=== PATIENT | male | born 1950 | race Caucasian/White ===

== ENCOUNTER 2019-02-23 12:43 | Inpatient (IN) | payer OTHER ==
[~2019-02-23] VITALS: Ht 180.3 cm; Wt 90.7 kg
[2019-02-23] MEDS ORDERED: METFORMIN HCL1000 M1 PO (13:39)
[2019-02-23] MEDS ORDERED: PENTOXIFYLLINE400 MG PO (13:40)
[2019-02-23] MEDS ORDERED: GLIMEPIRIDE4 MG PO (13:40)
[2019-02-23] MEDS ORDERED: NEURONTIN800 MG PO (13:40)
[2019-02-23] MEDS ORDERED: ADULT LOW DOSE81 M1 PO (13:41)
[2019-02-23] MEDS ORDERED: ATORVASTATIN CA20 MG PO (13:41)
== END 2019-03-03 20:23 | DRG 513 ==
LOC: ER 12:43 → SEC-K 02-24 11:51 → MEDI 02-24 11:51
PROVIDERS: Specialist; ADMIT Internal Medicine
PROC: BQ3LZZZ Magnetic Resonance Imaging (MRI) of Right Foot (ICD-10-PCS; 2019-02-24)
PROC: 0X6L0Z0 Detachment at Right Thumb, Complete, Open Approach (ICD-10-PCS; principal; 2019-02-26 16:00)
PROC: B54BZZZ Ultrasonography of Right Lower Extremity Veins (ICD-10-PCS; 2019-03-01)
DX: M86.171 Other acute osteomyelitis, right ankle and foot (principal); E11.52 Type 2 diabetes mellitus with diabetic peripheral angiopathy with gangrene; I96 Gangrene, not elsewhere classified; E11.621 Type 2 diabetes mellitus with foot ulcer; L97.513 Non-pressure chronic ulcer of other part of right foot with necrosis of muscle; Z79.4 Long term (current) use of insulin; E11.42 Type 2 diabetes mellitus with diabetic polyneuropathy; Z72.0 Tobacco use; E11.65 Type 2 diabetes mellitus with hyperglycemia; B95.61 Methicillin susceptible Staphylococcus aureus infection as the cause of diseases classified elsewhere; B96.4 Proteus (mirabilis) (morganii) as the cause of diseases classified elsewhere; I10 Essential (primary) hypertension; I87.2 Venous insufficiency (chronic) (peripheral)
CPT/HCPCS: 73221

== ENCOUNTER 2021-01-08 19:38 | Emergency (ER) | payer OTHER ==
[~2021-01-08] VITALS: Ht 180.3 cm; Wt 97.5 kg
[~2021-01-08 19:38] MED LIST: ADULT LOW DOSE81 M1 PO; ATORVASTATIN CA20 MG PO; GLIMEPIRIDE4 MG PO; METFORMIN HCL1000 M1 PO; NEURONTIN800 MG PO; PENTOXIFYLLINE400 MG PO
[2021-01-08] MEDS ORDERED: JANUMET 50-1,01 EACH PO (19:55)
[2021-01-08] MEDS ORDERED: GLIMEPIRIDE4 M1 PO (19:56)
== END 2021-01-08 21:04 | disposition home or self-care (01) ==
LOC: ER 19:38
DX: E11.628 Type 2 diabetes mellitus with other skin complications (principal); I96 Gangrene, not elsewhere classified; E11.65 Type 2 diabetes mellitus with hyperglycemia; Z79.84 Long term (current) use of oral hypoglycemic drugs

== ENCOUNTER 2022-07-21 07:18 | Inpatient (IN) | payer OTHER ==
[~2022-07-21] VITALS: Ht 165.1 cm; Wt 90.7 kg
[~2022-07-21 07:18] MED LIST changes: +GLIMEPIRIDE4 M1 PO; +JANUMET 50-1,01 EACH PO
[2022-07-21] MEDS ORDERED: GLIPIZIDE XL10 MG PO (08:05)
[2022-07-21] MEDS ORDERED: PLAVIX75 MG PO (08:05)
[2022-07-21] MEDS ORDERED: NORVASC5 MG PO (08:06)
[2022-07-21] MEDS ORDERED: ZESTRIL5 MG PO (08:07)
[2022-07-21] MEDS ORDERED: HORIZANT300 MG (08:07)
[2022-07-21] MEDS ORDERED: LANTUS SOL100 UNIT/1 SQ (08:08)
--- NOTE | 2022-07-21 08:10 | NUR ---
SE RECIBE MASCULINO DE 71 ANOS ALERTA Y ORIENTADO X3. REFIERE DOLOR EN PLANTA DE PIE CHELSEY. SE OBSERVA AREA CALLOSA. HX DE AMPUTACION EN DEDOS DE LOS PIES POR DIABETES. SE MIDEN S/V Y SE UBICA EN JAY DE ESPERA PENDIENTE A EVALUACION MEDICA.
--- NOTE | 2022-07-21 10:32 | NUR ---
PACIENTE ALERTA Y ORIENTADO X3. EVALUADA POR AL DRA. GIBSON. SE EDUCA PACIENTE SOBRE TRTAMIENTO MEDICO Y EL MISMO REFIERE ENTENDER. SE TANMAY MUESTRAS DE NATHAN Y SE ENVIAN A LABORATORIO. APCIENTE PENDIENTE A PLACA.
--- NOTE | 2022-07-21 15:24 | NUR ---
SE TANMAY CULTIVOS DE NATHAN SIGIENDO MEDIDAS ASEPTICAS
== END 2022-07-24 21:36 | disposition home or self-care (01) | DRG 638 ==
LOC: ER 07:18 → MEDI 19:45
PROVIDERS: ADMIT Internal Medicine; ATTEND Internal Medicine
PROC: BQ3MZZZ Magnetic Resonance Imaging (MRI) of Left Foot (ICD-10-PCS; principal; 2022-07-23)
DX: E11.621 Type 2 diabetes mellitus with foot ulcer (principal); L97.528 Non-pressure chronic ulcer of other part of left foot with other specified severity; E11.628 Type 2 diabetes mellitus with other skin complications; E11.65 Type 2 diabetes mellitus with hyperglycemia; L03.032 Cellulitis of left toe; E11.51 Type 2 diabetes mellitus with diabetic peripheral angiopathy without gangrene; M79.675 Pain in left toe(s); I10 Essential (primary) hypertension; B95.1 Streptococcus, group B, as the cause of diseases classified elsewhere; Z79.4 Long term (current) use of insulin; Z79.84 Long term (current) use of oral hypoglycemic drugs; Z89.412 Acquired absence of left great toe
CPT/HCPCS: 73725

== ENCOUNTER 2022-11-23 08:47 | Emergency (ER) | payer OTHER ==
[~2022-11-23] VITALS: Ht 180.3 cm; Wt 97.5 kg
[~2022-11-23 08:47] MED LIST changes: +GLIPIZIDE XL10 MG PO; +HORIZANT300 MG; +LANTUS SOL100 UNIT/1 SQ; +NORVASC5 MG PO; +PLAVIX75 MG PO; +ZESTRIL5 MG PO
== END 2022-11-23 10:46 | disposition home or self-care (01) ==
LOC: ER 08:47
DX: H57.12 Ocular pain, left eye (principal); E11.9 Type 2 diabetes mellitus without complications; Z79.84 Long term (current) use of oral hypoglycemic drugs; I10 Essential (primary) hypertension

== ENCOUNTER 2023-10-13 10:02 | Inpatient (IN) | payer OTHER ==
[~2023-10-13] VITALS: Ht 167.6 cm; Wt 100.7 kg
[2023-10-13] MEDS ORDERED: ASPIRIN 325 MG TABLET.EC PO STA (12:15)
[2023-10-13] MEDS ORDERED: FUROsemide 40 MG/4 ML VIAL IV STA (12:16)
[2023-10-13] MEDS ORDERED: FAMOTIDINE/PF 20 MG in 0.9 % SODIUM CHLORIDE 8 ML IV PUSH STA (12:17)
[2023-10-13 13:35] LABS: HEMATOCRIT 43.6 % (39.0-48.0); HEMOGLOBIN 15.4 g/dL (13-16.00); MEAN CORPUSCULAR HEMOGLOBIN 28.6 pg (27.00-32.0); MEAN CORPUSCULAR HGB CONC 35.4 g/dl (32.0-36.0); PLATELET COUNT 176 K/uL (150-450); RED BLOOD COUNT 5.38 M/uL (4.00-6.00)
[2023-10-13 14:13] LABS: ALBUMIN 3.5 gm/dL (3.4-5.0); BILIRUBIN TOTAL 0.7 mg/dL (0.3-1.2); CREATININE SERUM 0.67 mg/dL (0.70-1.30); GFR 116.93; GLOBULINA 3.8 G/DL (2.4-3.5); INR 1.02; PARTIAL THROMBOPLASTIN TIME 28.9 SECONDS (22.0-34.0); POTASSIUM 3.97 mEq/L (3.5-5.1); PROTHROMBIN TIME 10.7 SECONDS (9.0-11.5); TOTAL PROTEIN 7.3 gm/dL (6.4-8.2)
[2023-10-13 14:22] LABS: ABG PH 7.444 (7.35-7.45); ABG PO2 60.1 mmHg (80-100); ABG pCO2 40.7 mmHg (35-45); BASE EXCESS 2.9 mmol/l; BICARBONATE 27.3 mmol/l (23-25); Tco2 28.5 mmol/l; allen test SATISFACTORY; o2 21 %; puncture site RADIAL RIGHT
[2023-10-13] MEDS ORDERED: IPRATROPIUM BROMIDE 0.5 MG/2.5 ML AMPUL.NEB IH SCH (18:21)
[2023-10-13] MEDS ORDERED: GUAIFENESIN 600 MG TABLET.SA PO SCH (18:27)
[2023-10-13] MEDS ORDERED: AZITHROMYCIN 500 MG in DEXTROSE 5 % IN WATER 250 ML IV SCH (18:28)
[2023-10-13] MEDS ORDERED: CEFTRIAXONE SODIUM 2,000 MG in 0.9 % SODIUM CHLORIDE 100 ML IV SCH (18:28)
[2023-10-13] MEDS ORDERED: DEXTROSE 50 % IN WATER 0.5 G/ML DISP.SYRIN IV PRN (18:30)
[2023-10-13] MEDS ORDERED: INSULIN LISPRO 1,000 UNIT/10 ML UNITS SUBCUTANEO PRN (18:30)
[2023-10-13] MEDS ORDERED: METHYLPREDNISOLONE SOD SUCC 125 MG VIAL IV ONE (18:30)
[2023-10-13] MEDS ORDERED: ACETAMINOPHEN 500 MG GEL..CAP PO PRN (18:45)
[2023-10-13 19:53] LABS: URINE APPEARANCE Clear; URINE BILIRRUBIN Negative (NEGATIVE); URINE BLOOD Negative; URINE COLOR Yellow; URINE LEUKOCYTE Negative; URINE NITRATE Negative; URINE UROBILINOGEN 0.2 E.U./dl
[2023-10-13 19:56] LABS: INR 1.04; PROTHROMBIN TIME 10.9 SECONDS (9.0-11.5)
[2023-10-13 19:57] LABS: URINE BACTERIA 89.3 uL (0.0-1933); URINE EPITHELIAL CELLS 3.5 uL (0.0-38.8); URINE WBC 1.8 uL (0.0-23.2)
[2023-10-13 19:59] LABS: URINE GLUCOSE 250 MG/DL (NEGATIVE); URINE PROTEIN 100 (NEGATIVE); URINE RBC 1.5 uL (0.0-20.8)
[2023-10-14] MEDS ORDERED: CLOPIDOGREL BISULFATE 75 MG TABLET PO SCH (09:00)
[2023-10-14] MEDS ORDERED: FUROsemide 20 MG/2 ML VIAL IV SCH (09:00)
[2023-10-14] MEDS ORDERED: FAMOTIDINE/PF 20 MG in 0.9 % SODIUM CHLORIDE 8 ML IV PUSH SCH (09:00)
[2023-10-14] MEDS ORDERED: ATORVASTATIN CALCIUM 20 MG TABLET PO SCH (09:00)
[2023-10-14] MEDS ORDERED: PENTOXIFYLLINE 400 MG TABLET.SA PO SCH (09:00)
[2023-10-14] MEDS ORDERED: LISINOPRIL 5 MG TABLET PO SCH (09:00)
[2023-10-14] MEDS ORDERED: METHYLPREDNISOLONE SOD SUCC 40 MG VIAL IV SCH (18:42)
[2023-10-14] MEDS ORDERED: LEVALBUTEROL HCL 1.25 MG/3 ML SOLUTION IH SCH (21:00)
[2023-10-14] MEDS ORDERED: IPRATROPIUM BROMIDE 0.5 MG/2.5 ML AMPUL.NEB IH SCH (21:00)
[2023-10-14] MEDS ORDERED: AMLODIPINE BESYLATE 5 MG TABLET PO SCH (21:15)
[2023-10-15 07:01] LABS: HEMOGLOBIN 15.6 g/dL (13-16.00); MEAN CORPUSCULAR HEMOGLOBIN 28.4 pg (27.00-32.0); MEAN CORPUSCULAR HGB CONC 35.4 g/dl (32.0-36.0); PLATELET COUNT 169 K/uL (150-450); RED BLOOD COUNT 5.49 M/uL (4.00-6.00); RED CELL DISTRIBUTION WIDTH 14.3 % (11.5-14.5)
[2023-10-15 07:24] LABS: ALBUMIN 3.6 gm/dL (3.4-5.0); BILIRUBIN TOTAL 0.39 mg/dL (0.3-1.2); CALCIUM 9.4 mg/dL (8.5-10.1); CREATININE SERUM 0.87 mg/dL (0.70-1.30); GFR 86.5; GLOBULINA 3.5 G/DL (2.4-3.5); MAGNESIUM 2.3 mg/dL (1.8-2.4); PHOSPHOROUS 4.2 mg/dL (2.5-4.9); POTASSIUM 4.68 mEq/L (3.5-5.1); TOTAL PROTEIN 7.1 gm/dL (6.4-8.2)
[2023-10-15 07:29] LABS: C-REACTIVE PROTEIN 1.53 MG/DL (0.00-0.29)
[2023-10-15 08:34] LABS: MYCOPLASMA PNEUMONIAE IGM NON REACTIVE (NO REACTIVE)
[2023-10-15] MEDS ORDERED: LISINOPRIL 10 MG TABLET PO SCH (10:01)
[2023-10-15] MEDS ORDERED: INSULIN GLARGINE,HUM.REC.ANLOG 1,000 UNITS/10 ML UNITS SUBCUTANEO SCH (17:00)
[2023-10-15] MEDS ORDERED: AMLODIPINE BESYLATE 10 MG TABLET PO SCH (17:00)
[2023-10-16] MEDS ORDERED: NYSTATIN 15 GM,ZINC OXIDE 30 GM,SILVER SULFADIAZINE 50 GM TOP PRN (15:00)
[2023-10-16] MEDS ORDERED: LACTULOSE 20 G/30 ML BLIST.PACK PO STA (18:20)
[2023-10-16] MEDS ORDERED: MAGNESIUM HYDROXIDE 30 ML BLIST.PACK PO STA (18:20)
[2023-10-17] MEDS ORDERED: FUROsemide 20 MG TABLET PO SCH (09:00)
[2023-10-17] MEDS ORDERED: INSULIN GLARGINE,HUM.REC.ANLOG 1,000 UNITS/10 ML UNITS SUBCUTANEO SCH (17:00)
[2023-10-17] MEDS ORDERED: DEXTROSE 50 % IN WATER 0.5 G/ML DISP.SYRIN IV PRN (20:00)
[2023-10-17] MEDS ORDERED: INSULIN LISPRO 1,000 UNIT/10 ML UNITS SUBCUTANEO PRN (20:00)
[2023-10-18] MEDS ORDERED: LISINOPRIL 20 MG TABLET PO SCH (09:00)
[2023-10-18 23:07] LABS: ABG PH 7.426 (7.35-7.45); ABG PO2 70.1 mmHg (80-100); ABG pCO2 43.4 mmHg (35-45); SaO2 94.4 %
[2023-10-18 23:08] LABS: BICARBONATE 27.9 mmol/l (23-25); Tco2 29.2 mmol/l; allen test SATISFACTORY; o2 21 %; puncture site RADIAL RIGHT
== END 2023-10-20 14:00 | disposition home or self-care (01) | DRG 291 ==
LOC: ER 10:02 → MEDJ 18:55
PROVIDERS: General Practice; Internal Medicine Critical Care Medicine; Internal Medicine Infectious Disease; ADMIT Internal Medicine; ATTEND Internal Medicine
PROC: BW24ZZZ Computerized Tomography (CT Scan) of Chest and Abdomen (ICD-10-PCS; principal; 2023-10-13)
PROC: B24BZZZ Ultrasonography of Heart with Aorta (ICD-10-PCS; 2023-10-13)
PROC: 4A12X4Z Monitoring of Cardiac Electrical Activity, External Approach (ICD-10-PCS; 2023-10-19)
DX: I11.0 Hypertensive heart disease with heart failure (principal); I50.33 Acute on chronic diastolic (congestive) heart failure; J44.1 Chronic obstructive pulmonary disease with (acute) exacerbation; J20.9 Acute bronchitis, unspecified; E11.9 Type 2 diabetes mellitus without complications; Z79.4 Long term (current) use of insulin; Z20.822 Contact with and (suspected) exposure to COVID-19; R91.1 Solitary pulmonary nodule; I73.9 Peripheral vascular disease, unspecified

== ENCOUNTER 2024-06-03 05:50 | Day surgery (SDC) | payer OTHER ==
[2024-05-28 09:28] LABS: URINE BACTERIA 8.8 uL (0.0-1933); URINE EPITHELIAL CELLS 6.3 uL (0.0-38.8); URINE WBC 5.4 uL (0.0-23.2)
[2024-05-28 09:30] LABS: HEMOGLOBIN 15.5 g/dL (13-16.00); MEAN CELL VOLUME 78.7 fL (80.0-100.00); MEAN CORPUSCULAR HEMOGLOBIN 28.3 pg (27.00-32.0); MEAN CORPUSCULAR HGB CONC 35.9 g/dl (32.0-36.0); PLATELET COUNT 178 K/uL (150-450); RED BLOOD COUNT 5.46 M/uL (4.00-6.00); RED CELL DISTRIBUTION WIDTH 14.2 % (11.5-14.5)
[2024-05-28 09:32] LABS: PH,URINE 5.5; URINE BILIRRUBIN NEGATIVE (NEGATIVE); URINE BLOOD TRACE; URINE GLUCOSE NEGATIVE (NEGATIVE); URINE KETONE NEGATIVE (NEGATIVE); URINE LEUKOCYTE NEGATIVE; URINE NITRATE NEGATIVE; URINE UROBILINOGEN 0.2 E.U./dl
[2024-05-28 09:40] LABS: URINE APPEARANCE CLEAR; URINE COLOR COLORLESS; URINE PROTEIN 100 (NEGATIVE); URINE RBC 1.3 uL (0.0-20.8)
[2024-05-28 10:01] LABS: INR 1.06; PARTIAL THROMBOPLASTIN TIME 29.1 SECONDS (22.0-34.0); PROTHROMBIN TIME 11.5 SECONDS (9.0-11.5)
[2024-05-28 10:20] LABS: CALCIUM 9.4 mg/dL (8.5-10.1); CREATININE SERUM 0.62 mg/dL (0.70-1.30); GFR 127.88; POTASSIUM 4.26 mEq/L (3.5-5.1)
[2024-06-03] MEDS ORDERED: METRONIDAZOLE/SODIUM CHLORIDE 5 MG/ML ML IV SCH (09:00)
[2024-06-03] MEDS ORDERED: CEFTRIAXONE SODIUM 2,000 MG VIAL IV SCH (09:00)
[2024-06-03] MEDS ORDERED: BUPIVACAINE HCL 30 ML VIAL IJ ONE (09:00)
[2024-06-03] MEDS ORDERED: ENOXAPARIN SODIUM 40 MG/0.4 ML SYRINGE SUBCUTANEO ONE (09:00)
[2024-06-03] MEDS ORDERED: PERCOCET 5-3251 EACH PO (10:26)
[2024-06-03] MEDS ORDERED: CELEBREX200MG PO (10:26)
[2024-06-03] MEDS ORDERED: POLY119PG PO (10:26)
[2024-06-03] MEDS ORDERED: NEURONTIN300 MG PO (10:26)
[2024-06-03] MEDS ORDERED: MORPHINE SULFATE 4 MG/ML VIAL IV ONE ×2 (10:40→11:10)
== END 2024-06-03 16:20 | disposition home or self-care (01) ==
LOC: CIR.AMB 05:50
PROVIDERS: ATTEND Surgery
DX: K40.90 Unilateral inguinal hernia, without obstruction or gangrene, not specified as recurrent (principal); I10 Essential (primary) hypertension
CPT/HCPCS: 49525; C1781

== ENCOUNTER 2024-06-16 13:46 | Emergency (ER) | payer OTHER ==
[~2024-06-16] VITALS: Ht 170.2 cm; Wt 108.9 kg
[~2024-06-16 13:46] MED LIST changes: +CELEBREX200MG PO; +NEURONTIN300 MG PO; +PERCOCET 5-3251 EACH PO; +POLY119PG PO
[2024-06-16] MEDS ORDERED: FAMOTIDINE/PF 20 MG/2 ML VIAL IV PUSH ONE (16:45)
[2024-06-16] MEDS ORDERED: ONDANSETRON 4 MG TAB.RAPDIS PO ONE (16:45)
[2024-06-16] MEDS ORDERED: MAG HYDROX/ALUMINUM HYD/SIMETH 30 ML BLIST.PACK PO ONE (16:45)
[2024-06-16 17:34] LABS: PH,URINE 5.5 (5.0-8.0); URINE APPEARANCE Clear; URINE BILIRRUBIN Negative (NEGATIVE); URINE BLOOD Negative; URINE COLOR Yellow; URINE GLUCOSE Negative (NEGATIVE); URINE KETONE Negative (NEGATIVE); URINE LEUKOCYTE Negative; URINE NITRATE Negative
[2024-06-16 17:35] LABS: URINE BACTERIA 78.1 uL (0.0-1933); URINE EPITHELIAL CELLS 8.3 uL (0.0-38.8); URINE RBC 3.8 uL (0.0-20.8); URINE WBC 3.7 uL (0.0-23.2)
[2024-06-16 17:48] LABS: HEMATOCRIT 38.3 % (39.0-48.0); HEMOGLOBIN 13.5 g/dL (13-16.00); MEAN CELL VOLUME 78.6 fL (80.0-100.00); MEAN CORPUSCULAR HEMOGLOBIN 27.7 pg (27.00-32.0); MEAN CORPUSCULAR HGB CONC 35.2 g/dl (32.0-36.0); PLATELET COUNT 342 K/uL (150-450); RED BLOOD COUNT 4.87 M/uL (4.00-6.00); RED CELL DISTRIBUTION WIDTH 13.6 % (11.5-14.5)
[2024-06-16 17:51] LABS: URINE CAST 0.61 uL (0.0-1.40); URINE PROTEIN 300 (NEGATIVE)
[2024-06-16 18:18] LABS: BILIRUBIN TOTAL 0.49 mg/dL (0.3-1.2); CALCIUM 9.9 mg/dL (8.5-10.1); CREATININE SERUM 0.86 mg/dL (0.70-1.30); GFR 87.66; GLOBULINA 4.9 G/DL (2.4-3.5); POTASSIUM 3.82 mEq/L (3.5-5.1); TOTAL PROTEIN 7.9 gm/dL (6.4-8.2)
[2024-06-16] MEDS ORDERED: ACETAMINOPHEN 500 MG GEL..CAP PO PRN (21:15)
[2024-06-16] MEDS ORDERED: KETOROLAC TROMETHAMINE 30 MG VIAL IU ONE (21:15)
[2024-06-16] MEDS ORDERED: 0.9 % SODIUM CHLORIDE 1,000 ML IV SCH (21:15)
[2024-06-16] MEDS ORDERED: ONDANSETRON HCL 4 MG in 0.9 % SODIUM CHLORIDE 50 ML IV PRN (21:15)
[2024-06-17] MEDS ORDERED: PIPERACILLIN/TAZOBACTAM SODIUM 3.375 GM in DEXTROSE 5 % IN WATER 100 ML IV SCH
[2024-06-17] MEDS ORDERED: FAMOTIDINE/PF 20 MG in 0.9 % SODIUM CHLORIDE 8 ML IV PUSH SCH (09:00)
== END 2024-06-16 22:39 | disposition home or self-care (01) ==
LOC: ER 13:48
PROVIDERS: Emergency Medicine
DX: K52.89 Other specified noninfective gastroenteritis and colitis (principal); R53.81 Other malaise; R11.10 Vomiting, unspecified; I10 Essential (primary) hypertension; Z20.822 Contact with and (suspected) exposure to COVID-19
CPT/HCPCS: 36415; 74022; 96365; 99283; J3490

== ENCOUNTER 2025-07-08 13:06 | Inpatient (IN) | payer OTHER ==
[~2025-07-08] VITALS: Ht 177.8 cm; Wt 107.0 kg
--- NOTE | 2025-07-08 14:47 | NUR ---
PACIENTE REFERIDO A DR GAETANO HERNANDEZ GEOVANNI ULCERA EN PIE CHELSEY.SIGNOS VITALES REALIZADOS , PTE UBICADO EN CAMA 12 PARA EVALUACION POR MEDICO.
[2025-07-08] MEDS ORDERED: CEFTRIAXONE SODIUM 1,000 MG VIAL IV STA (15:14)
[2025-07-08] MEDS ORDERED: ENALAPRILAT DIHYDRATE 1.25 MG/ML VIAL IV STA (15:21)
[2025-07-08] MEDS ORDERED: ENALAPRILAT DIHYDRATE 1.25 MG/ML VIAL IV ONE (15:30)
[2025-07-08] MEDS ORDERED: CEFTRIAXONE SODIUM 1,000 MG VIAL ONE (15:30)
--- NOTE | 2025-07-08 15:58 | NUR ---
SE EDUCA ACERCA DE TX ORDENADO Y REFIERE ENTENDER, SE CANALIZA Y COLECTAN MUESTRAS DE LABORATORIO MEDIANTE MEDIDAS ASEPTICAS. SE ADMINISTRNA MEDICAMENTOS ANT ORDEN MEDICA.
[2025-07-08 15:59] LABS: BASO % 0.8 % (0.1-1.2); EOS # 0.19 (0.04-0.54); EOS % 3.6 % (0.7-7.0); LYMPH # 1.43 (1.18-3.74); LYMPH % 27.2 % (19.3-53.1); MEAN PLATELET VOLUME 10.30 fl (9.4-12.4); MONO # 0.40 (0.24-0.82); MONO % 7.6 % (4.7-12.5); NEUT # 3.19 (1.56-6.13); NEUT % 60.6 % (34.0-71.1); RED CELL DISTRIBUTION WIDTH 13.4 % (11.6-14.4)
[2025-07-08 16:17] LABS: INR 1.06
[2025-07-08 16:20] LABS: BUN CREA RATIO 20.0 (7.0-25.0); CREATININE SERUM 1.09 mg/dL (0.70-1.30); GFR 66.5; OSMOLALITY SERUM 294.0 MOSM/KG (275-295)
[2025-07-08 16:27] LABS: GLUCOSE FASTING 309.0 mg/dL (65-100)
[2025-07-08] MEDS ORDERED: INSULIN REGULAR, HUMAN 1,000 UNIT/10 ML UNITS IV STA (16:56)
--- NOTE | 2025-07-09 03:00 | NUR ---
PTE ALERTA Y ORIENTADO X3, EN [place] BAJA CON BARANDAS ELEVADAS POR SEGURIDAD. SE OBSERVA CON BUEN PATRON RESPIRATORIO. CANALIZADO EN ANTE BRAZO IZQ EN HL, PATENTE, SUHAS DE EDEMA Y ERITEMA. PEND PINOPLER AM. SE MANTIENE EN OBSERVACION POR CAMBIOS
--- NOTE | 2025-07-09 07:31 | NUR ---
SE RECIBE PTE MASCULINO DE 74 YRS ALERTA CONCIENTE Y TRANQUILO EN [place] CON BARABDAS ELEVAD., SE LE KARLOS S/V Y SE DOCUEMTA. SE PREPARA A PTE PARA LLEVERLO A ESTUDIO DE DOPPLES . PTE SE OBSERVA CON H/L PATENTE, PTE CONSULTADO CON EL DR.LOPEZ HERNANDEZ Y [address] LA CUAL SE MANTIENE NOTIFICADO.
[2025-07-09] MEDS ORDERED: 0.9 % SODIUM CHLORIDE 1,000 ML IV SCH (11:45)
[2025-07-09] MEDS ORDERED: FAMOTIDINE/PF 20 MG in 0.9 % SODIUM CHLORIDE 8 ML IV PUSH SCH (11:55)
[2025-07-09] MEDS ORDERED: VANCOMYCIN HCL 1,000 MG VIAL IV SCH ×2 (11:56→21:00)
[2025-07-09] MEDS ORDERED: ATORVASTATIN CALCIUM 20 MG TABLET PO SCH (11:58)
[2025-07-09] MEDS ORDERED: AMLODIPINE BESYLATE 5 MG TABLET PO SCH (11:58)
[2025-07-09] MEDS ORDERED: INSULIN LISPRO 1,000 UNIT/10 ML UNITS SUBCUTANEO PRN (12:00)
[2025-07-09] MEDS ORDERED: ACETAMINOPHEN 500 MG GEL..CAP PO ONE (12:00)
[2025-07-09] MEDS ORDERED: PIPERACILLIN/TAZOBACTAM SODIUM 3.375 GM in DEXTROSE 5 % IN WATER 100 ML IV SCH (12:00)
[2025-07-09] MEDS ORDERED: DEXTROSE 50 % IN WATER 0.5 G/ML DISP.SYRIN IV PRN (12:00)
[2025-07-09] MEDS ORDERED: ONDANSETRON HCL 4 MG in 0.9 % SODIUM CHLORIDE 50 ML IV PRN (12:00)
[2025-07-09] MEDS ORDERED: VANCOMYCIN HCL 1,000 MG VIAL ONE ×2 (13:22→13:35)
[2025-07-09] MEDS ORDERED: FAMOTIDINE/PF 20 MG/2 ML VIAL ONE (13:23)
[2025-07-09] MEDS ORDERED: PIPERACILLIN/TAZOBACTAM SODIUM 3.375 GM VIAL IV ONE ×2 (13:23→13:35)
[2025-07-09] MEDS ORDERED: INSULIN LISPRO 1,000 UNIT/10 ML UNITS SUBCUTANEO ONE (14:02)
[2025-07-09 14:08] VITALS: BP 130/80
[2025-07-09 14:09] LABS: INR 1.04
[2025-07-09 14:21] LABS: URINE APPEARANCE Clear; URINE BILIRRUBIN Negative (NEGATIVE); URINE BLOOD Negative; URINE COLOR Yellow; URINE KETONE Negative (NEGATIVE); URINE LEUKOCYTE Negative; URINE NITRATE Negative; URINE UROBILINOGEN 2.0 E.U./dl
[2025-07-09 14:25] LABS: URINE BACTERIA 9.6 uL (0.0-1933); URINE RBC 3.0 uL (0.0-20.8); URINE WBC 9.4 uL (0.0-23.2)
[2025-07-09 14:33] LABS: URINE CAST 0.00 uL (0.0-1.40); URINE EPITHELIAL CELLS 0.7 uL (0.0-38.8); URINE GLUCOSE >=1000 MG/DL (NEGATIVE); URINE PROTEIN 100 (NEGATIVE)
[2025-07-09 21:37] VITALS: BP 153/70; O2SAT 98
[2025-07-10 03:14] VITALS: BP 192/94; O2SAT 96
[2025-07-10 08:40] LABS: BASO % 0.7 % (0.1-1.2); EOS # 0.26 (0.04-0.54); EOS % 4.2 % (0.7-7.0); LYMPH # 1.68 (1.18-3.74); LYMPH % 27.4 % (19.3-53.1); MEAN PLATELET VOLUME 10.50 fl (9.4-12.4); MONO # 0.54 (0.24-0.82); MONO % 8.8 % (4.7-12.5); NEUT # 3.61 (1.56-6.13); NEUT % 58.7 % (34.0-71.1); RED CELL DISTRIBUTION WIDTH 13.2 % (11.6-14.4)
[2025-07-10] MEDS ORDERED: CLOPIDOGREL BISULFATE 75 MG TABLET PO SCH (09:00)
[2025-07-10] MEDS ORDERED: ENOXAPARIN SODIUM 40 MG/0.4 ML SYRINGE SUBCUTANEO SCH (09:00)
[2025-07-10] MEDS ORDERED: LISINOPRIL 5 MG TABLET PO SCH (09:00)
[2025-07-10 09:15] LABS: ALT/SGPT 21.0 U/L (12-78); AST/SGOT 11.0 U/L (15-37); BILIRUBIN TOTAL 0.37 mg/dL (0.3-1.2); BUN CREA RATIO 17.0 (7.0-25.0); CREATININE SERUM 0.75 mg/dL (0.70-1.30); GFR 102.37; GLOBULINA 3.2 G/DL (2.4-3.5); GLUCOSE FASTING 210.0 mg/dL (65-100); OSMOLALITY SERUM 286.0 MOSM/KG (275-295)
[2025-07-10] MEDS ORDERED: SODIUM HYPOCHLORITE 1OZ TOP SCH (09:44)
[2025-07-10] MEDS ORDERED: ENALAPRILAT DIHYDRATE 1.25 MG/ML VIAL IV PRN (12:45)
[2025-07-10] MEDS ORDERED: CEFAZOLIN SODIUM 2,000 MG in 0.9 % SODIUM CHLORIDE 100 ML IV SCH (17:00)
[2025-07-10 19:07] VITALS: BP 189/79; O2SAT 98
[2025-07-11 03:47] VITALS: BP 180/80; O2SAT 98
[2025-07-11 10:15] VITALS: BP 169/77; O2SAT 97
[2025-07-11 19:06] VITALS: BP 169/76; O2SAT 97
[2025-07-12 02:36] VITALS: BP 179/90; O2SAT 95
[2025-07-12 09:08] VITALS: BP 160/70; O2SAT 96
[2025-07-12 21:38] VITALS: BP 160/83; O2SAT 96
[2025-07-13 03:14] VITALS: BP 158/72; O2SAT 96
[2025-07-13 08:55] VITALS: BP 180/90; O2SAT 96
[2025-07-13] MEDS ORDERED: AMPICILLIN SODIUM/SULBACTAM NA 3,000 MG VIAL IV SCH (14:00)
[2025-07-13] MEDS ORDERED: VANCOMYCIN HCL 5 MG/ML REDILUIDO IV SCH (17:00)
[2025-07-13 19:30] VITALS: BP 160/81; O2SAT 96
[2025-07-14 03:37] VITALS: BP 180/80; O2SAT 95
[2025-07-14 06:26] LABS: BASO % 0.6 % (0.1-1.2); EOS # 0.22 (0.04-0.54); EOS % 3.1 % (0.7-7.0); LYMPH # 1.41 (1.18-3.74); LYMPH % 19.7 % (19.3-53.1); MEAN PLATELET VOLUME 10.50 fl (9.4-12.4); MONO # 0.63 (0.24-0.82); MONO % 8.8 % (4.7-12.5); NEUT # 4.82 (1.56-6.13); NEUT % 67.5 % (34.0-71.1); RED CELL DISTRIBUTION WIDTH 12.8 % (11.6-14.4)
[2025-07-14 06:59] LABS: ALT/SGPT 31 U/L (12-78); AST/SGOT 23 U/L (15-37); BILIRUBIN TOTAL 0.58 mg/dL (0.3-1.2); BUN CREA RATIO 21 (7.0-25.0); CREATININE SERUM 0.76 mg/dL (0.70-1.30); GFR 100.82; GLOBULINA 3.4 G/DL (2.4-3.5)
[2025-07-14 07:19] LABS: OSMOLALITY SERUM 288 MOSM/KG (275-295)
[2025-07-14 07:20] LABS: GLUCOSE FASTING 433 mg/dL (65-100)
[2025-07-14 10:48] VITALS: BP 160/82; O2SAT 99
[2025-07-14 20:45] VITALS: BP 160/71; O2SAT 97
[2025-07-14] MEDS ORDERED: INSULIN GLARGINE,HUM.REC.ANLOG 1,000 UNITS/10 ML UNITS SUBCUTANEO SCH (21:00)
[2025-07-15 03:26] VITALS: BP 166/79; O2SAT 96
[2025-07-15 10:20] VITALS: BP 136/59; O2SAT 98
[2025-07-15 17:16] VITALS: BP 160/64; O2SAT 95
[2025-07-16 03:04] VITALS: BP 173/79; O2SAT 94
[2025-07-16 08:41] VITALS: BP 176/73; O2SAT 98
== END 2025-07-16 12:48 | disposition home or self-care (01) | DRG 580 ==
LOC: ER 13:07 → MEDI 07-09 13:33 → MEDJ 07-13 08:50
PROVIDERS: General Practice; Internal Medicine Infectious Disease; ADMIT Internal Medicine; ATTEND Internal Medicine
PROC: BQ2 Imaging, Non-Axial Lower Bones, Computerized Tomography (CT Scan) (ICD-10-PCS; 2025-07-08)
PROC: BQ3MZZZ Magnetic Resonance Imaging (MRI) of Left Foot (ICD-10-PCS; 2025-07-09)
PROC: B44HZZZ Ultrasonography of Bilateral Lower Extremity Arteries (ICD-10-PCS; 2025-07-09)
PROC: 0JBR3ZZ Excision of Left Foot Subcutaneous Tissue and Fascia, Percutaneous Approach (ICD-10-PCS; principal; 2025-07-14)
DX: L97.528 Non-pressure chronic ulcer of other part of left foot with other specified severity (principal); L03.116 Cellulitis of left lower limb; E11.621 Type 2 diabetes mellitus with foot ulcer; Z79.4 Long term (current) use of insulin; I10 Essential (primary) hypertension; B95.61 Methicillin susceptible Staphylococcus aureus infection as the cause of diseases classified elsewhere; E78.49 Other hyperlipidemia; I73.9 Peripheral vascular disease, unspecified; L08.89 Other specified local infections of the skin and subcutaneous tissue